=== PATIENT | male | born 1990 | race Two or more races ===

== ENCOUNTER 2024-09-17 05:52 | Emergency (ER) | payer OTHER, SELFPAY ==
[2024-09-17 06:19] VITALS: BP 126/92; PULSE 78; RESP 18; TEMP 36.9; O2SAT 97
--- NOTE | 2024-09-17 06:26 | PD.EDEXREM ---
ED Extremity Problem RME/HPI General Chief complaint: Extremity Problem,Nontraumatic Stated complaint: Gout flare up Time Seen by Provider: 09/17/24 06:06 Arrival date/time: 09/17/24 05:52 34-year-old male with history of gout presents emergency department complaints of gout flare right foot Limitations: no limitations Related Data Previous Rx's ?Medication ?Instructions ?Recorded ibuprofen 800 mg tablet 800 mg PO TID PRN pain #30 tabs 12/07/21 cyclobenzaprine 5 mg tablet 5 mg PO TID PRN muscle spasm #30 04/26/23 tabs gabapentin 100 mg capsule 100 mg PO TID #30 caps 04/26/23 naproxen 500 mg tablet 500 mg PO BID PRN pain #30 tabs 04/26/23 cyclobenzaprine 10 mg tablet 10 mg PO BID PRN muscle spasm #14 12/17/23 tabs gabapentin 300 mg capsule 300 mg PO Q8H #30 caps 12/17/23 ibuprofen 800 mg tablet (IBU) 800 mg PO Q8H #20 tabs 12/17/23 acetaminophen 500 mg capsule 1,000 mg (2 x 500 mg) PO TID #30 02/06/24 caps ibuprofen 600 mg tablet 600 mg PO TID PRN pain #30 tabs 02/06/24 lidocaine 5 % topical patch 1 patch topical QDAY #15 ea 02/06/24 (Lidoderm) hydrocodone 5 mg-acetaminophen 325 1 tab PO BID PRN pain #6 tabs 09/17/24 mg tablet indomethacin 50 mg capsule 50 mg PO TID 5 days #15 caps 09/17/24 prednisone 10 mg tablet 30 mg (3 x 10 mg) PO BID 3 days 09/17/24 #18 tabs Allergies Allergy/AdvReac Type Severity Reaction Status Date / Time Penicillins Allergy Severe HIVES, Verified 07/23/24 11:07 ITCHING Review of Systems Review of Systems Systems Reviewed: All systems reviewed, normal except as documented Constitutional Constitutional: Reports system reviewed and no additional complaints, except as documented, Denies fever(s) and Denies headache(s) Eyes Eyes: Reports system reviewed and no additional complaints, except as documented and Denies blurry vision ENT Ears, Nose, Mouth, and Throat: Reports system reviewed and no additional complaints, except as documented, Denies headache(s), Denies nasal congestion and Denies nasal discharge Cardiovascular Cardiovascular: Reports system reviewed and no additional complaints, except as documented, Denies chest pain and Denies dyspnea Respiratory Respiratory: Reports system reviewed and no additional complaints, except as documented, Denies chest congestion, Denies cough and Denies dyspnea Gastrointestinal Gastrointestinal: Reports system reviewed and no additional complaints, except as documented and Denies abdominal pain Musculoskeletal Musculoskeletal: Reports system reviewed and no additional complaints, except as documented, Reports abnormal gait, Reports arthralgias, Denies deformity, Reports joint swelling, Denies numbness, Reports stiffness and Denies tingling Integumentary/Breasts Skin/Breast: Reports system reviewed and no additional complaints, except as documented and Denies rash Neurologic Neurologic: Reports system reviewed and no additional complaints, except as documented, Reports as per HPI, Reports abnormal gait, Denies headache(s), Denies numbness and Denies tingling Past Medical History Past Medical History NEUROLOGIC: Negative Neurological Disorders CARDIAC: Negative Cardiac Disorders ED Exam General Limitations: Present no limitations General appearance: Present alert and in no apparent distress Head Head exam: Present atraumatic Eye Eye exam: Present normal appearance, PERRL and EOMI; Absent conjunctival injection ENT ENT exam: Present normal exam, normal oropharynx and mucous membranes moist Neck Neck exam: Present normal inspection, full ROM and trachea midline Chest Chest inspection: Present normal inspection and symmetric chest wall rise Respiratory Respiratory exam: Present normal lung sounds bilaterally Cardiovascular Cardiovascular exam: Present regular rate, normal rhythm and normal heart sounds Abdominal Exam Abdominal exam: Present soft and normal bowel sounds Extremities Exam Extremities exam: Present full ROM, tenderness (Right foot pain and tenderness) and normal capillary refill; Absent pedal edema, joint swelling or calf tenderness Back Exam Back exam: Present normal inspection and full ROM Neurological Exam Neurological exam: Present alert, oriented X3 and CN II-XII intact Psychiatric Psychiatric exam: Present normal affect and normal mood Skin Skin exam: Present warm, dry, intact and normal color Course Quality Measures none Orders Category Date Time Status Dexamethasone Inj [Decadron Inj] Med 09/17/24 06:26 Discontinued 10 mg PO X1 ONE HYDROcodone*/APAP 5/325 [[place] 5/325] Med 09/17/24 06:26 Discontinued 1 tab PO X1 ONE Ketorolac Inj [Toradol Inj] Med 09/17/24 06:26 Discontinued 30 mg IM X1 ONE Vital Signs Vital signs: Vital Signs Temperature 98.5 F 09/17/24 06:19 Pulse Rate 78 09/17/24 06:19 Respiratory Rate 18 09/17/24 06:19 Blood Pressure 126/92 H 09/17/24 06:19 Pulse Oximetry (%) 97 09/17/24 06:19 Oxygen Delivery Method Room Air 09/17/24 06:19 O2 saturation 97% room air within normal limit Extremity Problem MDM Narrative MDM Narrative:: 34-year-old male with history of gout presents emergency department complaints of gout flare right foot On exam patient appears to be in quite a bit of pain patient has pain to the palpation of the right foot patient is no swelling of the leg Symptoms highly consistent with gout flare patient will be medicated here and discharged with medication Patient discharged home in no distress to follow-up with primary care doctor in the next 24 to 48 hours and for any worsening symptoms to return to the ER immediately Patient data External records reviewed:: [facility] previous records Clinical information provided by:: patient Social determinants that could affect healthcare access:: none Patient has the following chronic illnesses:: Gout How is presenting disease/condition affected by chronic disease/condition?: caused by Evaluation data The following diagnostics were reviewed and interpreted by me:: other (specify) (N/A) Lab and/or radiology exams considered but not ordered:: Consider not ordered Interpretation Summary: N/A Medications / Prescriptions Medications or Prescriptions considered but not ordered:: Given Medication administrations:: Medication Administration History Discontinued Medications Hydrocodone Bitart/Acetaminophen (Hydrocodone/Apap 5/325 Tablet) 1 tab PO X1 ONE Stop: 09/17/24 06:27 Dexamethasone Sodium Phosphate (Dexamethasone Sod Phos Inj 10 Mg/Ml Vial) 10 mg PO X1 ONE Stop: 09/17/24 06:27 Ketorolac Tromethamine (Ketorolac Inj 30 Mg/Ml Vial) 30 mg IM X1 ONE Stop: 09/17/24 06:27 Given Consultations Consultation(s) initiated? (list below): No Diagnosis Extremity Problem Differential Diagnosis: superficial thrombophlebitis, deep vein thrombosis of lower extremity and other (Gout) Most likely diagnosis given after review of the tests above:: Gout flare Admission Indicated Admission indicated?: not indicated Admission Request Was there a request for admission?: No Disposition Plan Disposition Plan: Discharge Discharge Attestation Discharge Attestation: The patient and all family members were given an opportunity to ask questions and understood the discharge instructions. Discharge instructions specifically effects, indications for sooner follow up or return to the emergency department, and the expected course of current diagnosis. Patient condition: Stable Discharge Plan Plan Patient Disposition: HOME (Self Care) Disposition Comment: stable Prescriptions/Referrals Prescriptions/Med Rec: New prednisone 10 mg tablet 30 mg PO BID 3 Days Qty: 18 0RF hydrocodone-acetaminophen 5-325 mg tablet 1 tab PO BID MDD 10 PRN (Reason: pain) Qty: 6 0RF indomethacin 50 mg capsule 50 mg PO TID 5 Days Qty: 15 0RF Rx Instructions: administer with food or milk No Action ibuprofen 800 mg tablet 800 mg PO TID PRN (Reason: pain) Qty: 30 0RF naproxen 500 mg tablet 500 mg PO BID PRN (Reason: pain) Qty: 30 0RF cyclobenzaprine 5 mg tablet 5 mg PO TID PRN (Reason: muscle spasm) Qty: 30 0RF gabapentin 100 mg capsule 100 mg PO TID Qty: 30 0RF lidocaine [Lidoderm] 5 % adhesive patch,medicated 1 patch topical QDAY Qty: 15 0RF Rx Instructions: leave on most painful area for up to 12 hrs ibuprofen 600 mg tablet 600 mg PO TID PRN (Reason: pain) Qty: 30 0RF acetaminophen 500 mg capsule 1,000 mg PO TID Qty: 30 0RF cyclobenzaprine 10 mg tablet 10 mg PO BID PRN (Reason: muscle spasm) Qty: 14 0RF ibuprofen [IBU] 800 mg tablet 800 mg PO Q8H Qty: 20 0RF gabapentin 300 mg capsule 300 mg PO Q8H Qty: 30 0RF Problem List Clinical Impression: Gout flare Patient/Caregiver Discharge Instructions Education Materials: ED Gout Additional Instructions: Please follow up with your primary care doctor in the next 24-48hrs for any worsening symptoms return here immediately Print Language: Namibian Stand Alone Forms: [employer] Award Info., Work/School Release, Patient Portal Info Letter PA/DIETARY SUPERVISOR Supervising Physician PA/ALEXIS Supervising Physician: dr becker
[2024-09-17] MEDS: DEXAMETHASONE SOD PHOS INJ 10 MG/ML VIAL PO (06:38)
[2024-09-17] MEDS: HYDROcodone/APAP 5/325 TABLET 1 TAB PO (06:38)
[2024-09-17] MEDS: KETOROLAC INJ 30 MG/ML VIAL IM (06:38)
== END 2024-09-17 07:19 | disposition home or self-care (01) ==
LOC: SERX 06:52
PROVIDERS: Emergency Provider Emergency Medicine; PCP Family Medicine
DX: M10.9 Gout, unspecified (principal)
CPT/HCPCS: 96372; 99283; J1100; J1885; A9270

== ENCOUNTER 2025-03-04 12:41 | Emergency (ER) | payer OTHER, SELFPAY ==
[2025-03-04 12:43] VITALS: BMI 34.9
--- NOTE | 2025-03-04 12:55 | XR_ITS ---
Examination: PA lateral chest 2 views TECHNIQUE: Upright PA lateral chest 2 views Exam date and time: February 24, 2025 1448 hours INDICATIONS: Coughing beginning 4 days ago. FINDINGS: Normal heart size Lungs are clear. The osseous structures are intact IMPRESSION: No active disease
--- NOTE | 2025-03-04 12:55 | XR_ITS ---
Examination: Duplex scan of the upper extremity, unilateral right Date and time of exam: March 04, 2025 1400 hours INDICATIONS: Right hand swelling arm pain 4 days Technique: Duplex scan of the extremity veins using B-mode/grayscale imaging and Doppler spectral analysis and color flow Attention is directed to internal echogenicity, compression and augmentation involving these veins, color flow assessment, spectral analysis Findings: Major deep venous structures in the extremity demonstrate normal course and caliber. There is no evidence of deep vein thrombosis. Normal color flow and spectral analysis Impression: Negative for DVT..
--- NOTE | 2025-03-04 12:55 | EKG_ITS ---
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
[2025-03-04 13:04] VITALS: BP 152/90; PULSE 80; RESP 18; TEMP 36.9; O2SAT 96
[2025-03-04 13:36] LABS: Basophils # (Auto) 0.1 Thou/mm3 (0.0-0.2); Basophils % (Auto) 1 % (0-2.5); Eosinophils # (Auto) 0.5 Thou/mm3 (0.0-0.5); Eosinophils % (Auto) 4 % (0-10); Hematocrit 48.9 % (41.0-53.0); Hemoglobin 16.8 g/dL (13.5-16.0); Immature Granulocytes % (Auto) 0 % (0-0); Immature Granulocytes Auto 0.03 Thou/mm3 (0.00-0.00); Lymphocytes # (Auto) 2.8 Thou/mm3 (1.0-4.8); Lymphocytes % (Auto) 22 % (10-50); Mean Corpuscular HGB Conc 34.4 g/dl (31.0-37.0); Mean Corpuscular Hemoglobin 28.5 pg (25.0-35.0); Mean Corpuscular Volume 83 fL (80-100); Monocytes # (Auto) 1.1 Thou/mm3 (0.0-0.8); Monocytes % (Auto) 8 % (0-12); Neutrophils # (Auto) 8.5 Thou/mm3 (1.8-7.7); Neutrophils % (Auto) 66 % (37-80); Nucleated Red Blood Cell % 0 /100 WBC (0); Platelet Count 239 Thou/mm3 (140-440); RDW Standard Deviation 38.1 fL (35.1-43.9); White Blood Count 12.9 Thou/mm3 (3.8-10.6)
[2025-03-04 13:52] LABS: Alanine Aminotransferase 40 U/L (10-49); Albumin, Serum 4.6 gm/dL (3.5-5.0); Albumin/Globulin Ratio 1.5 (1.2-2.2); Alkaline Phosphatase 47 U/L (46-116); Anion Gap 8 (7-16); Aspartate Amino Transferase 30 U/L (0-34); BUN/Creatinine Ratio 9 Ratio (12-20); Bilirubin,Total 0.5 mg/dL (0.3-1.2); Blood Urea Nitrogen 8 mg/dL (9-23); Calcium 9.5 mg/dL (8.3-10.6); Calcium (Corrected) 9.5 mg/dL (8.5-10.1); Carbon Dioxide 27.4 mMol/L (20.0-31.0); Chloride 105 mMol/L (98-107); Creatinine (Component) 0.9 mg/dL (0.6-1.3); Estimated Creatinine Clearance 154.1 mL/min (>60); Glucose 110 mg/dL (74-106); Osmolality,Calculated 278 (275-295); Potassium 3.8 mMol/L (3.4-5.1); Sodium 140 mMol/L (136-145); Total Protein 7.6 gm/dL (5.7-8.2); Troponin I < 0.002 ng/mL (0.0-0.045); eGFR > 60 See Note
--- NOTE | 2025-03-04 14:35 | EDNOTE_ITS ---
<Statement entered by Kanika Payne MD - 03/08/25 05:26> As co-signing physician, I was present and available for consult prn. I concur with the plan and care as documented by the midlevel provider. Upper Respiratory Inf. RME/HPI General Chief Complaint: Flu Like Symptoms Stated Complaint: CHEST CONGESTION X5 DAYS, R HAND SWELLING X4 DAYS Time Seen by Provider: 03/04/25 12:51 Arrival date/time: 03/04/25 12:41 35-year-old male presents emergency department today for complaint of chest congestion, cough x 5 days patient also reports right hand swelling intermittently patient ports history of gout. Limitations: no limitations Related Data Previous Rx's ?Medication ?Instructions ?Recorded ibuprofen 800 mg tablet 800 mg PO TID PRN pain #30 t abs 12/07/21 cyclobenzaprine 5 mg tablet 5 mg PO TID PRN muscle spa sm #30 04/26/23 tabs gabapentin 100 mg capsule 100 mg PO TID #30 caps 04/26 naproxen 500 mg tablet 500 mg PO BID PRN pain #30 t abs 04/26/23 cyclobenzaprine 10 mg tablet 10 mg PO BID PRN muscle s pasm #14 12/17/23 tabs gabapentin 300 mg capsule 300 mg PO Q8H #30 caps 12/17 ibuprofen 800 mg tablet (IBU) 800 mg PO Q8H #20 tabs 0 12/17/23 acetaminophen 500 mg capsule 1,000 mg (2 x 500 mg) PO TID #30 02/06/24 caps ibuprofen 600 mg tablet 600 mg PO TID PRN pain #30 t abs 02/06/24 lidocaine 5 % topical patch 1 patch topical QDAY #15 e a 02/06/24 (Lidoderm) hydrocodone 5 mg-acetaminophen 325 1 tab PO BID PRN pa in #6 tabs 09/17/24 mg tablet albuterol sulfate 90 mcg/actuation 2 puff inhalation Q 6H PRN 03/04/25 aerosol inhaler (Ventolin HFA) shortness of breath or wheezing #8.5 grams benzonatate 100 mg capsule 100 mg PO TID #14 caps 02/06 07/01 prednisone 10 mg tablet 30 mg (3 x 10 mg) PO BID 3 d ays 03/04/25 #18 tabs Allergies Allergy/AdvReac Type Severity Reaction Status Date / Time Penicillins Allergy Severe HIVES, Verified 07/23/24 11:07 ITCHING Review of Systems Review of Systems Systems Reviewed: All systems reviewed, normal except as documented Constitutional Constitutional: Reports system reviewed and no additional complaints, except as documented, Denies fever(s) and Denies headache(s) Eyes Eyes: Reports system reviewed and no additional complaints, except as documented and Denies blurry vision ENT Ears, Nose, Mouth, and Throat: Reports system reviewed and no additional complaints, except as documented, Denies headache(s), Reports nasal congestion and Reports nasal discharge Cardiovascular Cardiovascular: Reports system reviewed and no additional complaints, except as documented, Denies chest pain and Denies dyspnea Respiratory Respiratory: Reports system reviewed and no additional complaints, except as documented, Reports chest congestion, Reports cough and Denies dyspnea Gastrointestinal Gastrointestinal: Reports system reviewed and no additional complaints, except as documented and Denies abdominal pain Integumentary/Breasts Skin/Breast: Reports system reviewed and no additional complaints, except as documented and Denies rash Neurologic Neurologic: Reports system reviewed and no additional complaints, except as documented, Reports as per HPI and Denies headache(s) Past Medical History Past Medical History NEUROLOGIC: Negative Neurological Disorders or Seizures CARDIAC: Negative Cardiac Disorders or Congestive Heart Failure RESPIRATORY: Negative Chronic Obstructive Pulmonary Disease (COPD) or Asthma GASTROINTESTINAL: Positive Gastrointestinal Disorders, Colitis and Obesity GENITOURINARY: Negative Renal Disease MUSCULOSKELETAL: Positive Gout ENDOCRINE: Positive Endocrine Disorders and Diabetes Mellitus Type 2 (PRE DIABETIC. NOT ON MEDS); Negative Diabetes Mellitus Type 1 HEMATOLOGIC: Negative Sickle Cell Disease OTHER HISTORY: Negative Blood Transfusions, Blood Transfusion Reaction or Anesthesia Reactions Social History SMOKING STATUS: Never smoker SECOND HAND EXPOSURE: No SUBSTANCE USE: marijuana ED Exam General Limitations: Present no limitations General appearance: Present alert and in no apparent distress Head Head exam: Present atraumatic, normocephalic and normal inspection Eye Eye exam: Present normal appearance, PERRL and EOMI; Absent conjunctival injection ENT ENT exam: Present normal exam, normal oropharynx and mucous membranes moist Neck Neck exam: Present normal inspection, full ROM and trachea midline Chest Chest inspection: Present normal inspection and symmetric chest wall rise Respiratory Respiratory exam: Present normal lung sounds bilaterally; Absent respiratory distress or wheezes Cardiovascular Cardiovascular exam: Present regular rate, normal rhythm and normal heart sounds Abdominal Exam Abdominal exam: Present soft and normal bowel sounds; Absent distention, tenderness, guarding, rebound, rigidity, Renteria's sign or tenderness at McBurney's Point Abdominal tenderness: Absent RUQ, RLQ or LUQ Extremities Exam Extremities exam: Present normal inspection and full ROM Back Exam Back exam: Present normal inspection and full ROM Neurological Exam Neurological exam: Present alert, oriented X3 and CN II-XII intact Psychiatric Psychiatric exam: Present normal affect and normal mood Skin Skin exam: Present warm, dry, intact and normal color Course Quality Measures none Orders Category Date Time Status Bedside Influenza A&B Antigen Test NOW Care 03/04/25 13:50 Active EKG (ED ONLY) *Do not use* NOW Care 03/04/25 12:55 Completed EKG (ED Only) Stat Exams 03/04/25 12:55 Draft US venous doppler UE RT Stat Exams 03/04/25 12:55 Taken XR chest 2V Stat Exams 03/04/25 12:55 Completed CBC Stat Lab 03/04/25 13:15 Completed Comprehensive Metabolic Panel Stat Lab 03/04/25 13:15 Completed Troponin I Stat Lab 03/04/25 13:15 Completed Vital Signs Vital signs: Vital Signs Temperature 98.4 F 03/04/25 13:04 Pulse Rate 80 03/04/25 13:04 Respiratory Rate 18 03/04/25 13:04 Blood Pressure 152/90 H 03/04/25 13:04 Pulse Oximetry (%) 96 03/04/25 13:04 Oxygen Delivery Method CPAP 03/04/25 13:04 O2 saturation 96% room air within the limits Procedures -ED EKG Interpretation #1: Date of EK03/04/25 Time of EK:08 Rate: 72 Interpretation: Interpreted by me EKG Impression: Normal sinus rhythm, No acute ST-T changes, No ectopy, No ischemic changes, Normal QRS, Normal intervals and Normal axis Upper Respiratory Infection MDM Narrative MDM Narrative:: 35-year-old male presents emergency department today for complaint of chest congestion, cough x 5 days patient also reports right hand swelling intermittently patient ports history of gout. On exam patient well-appearing patient does not appear ill or toxic patient is hemodynamically stable O2 saturation 96% room air Lab work and imaging obtained no acute emergent findings noted EKG obtained no acute emergent findings noted Symptoms are consistent with URI Patient discharged home in no distress to follow-up with primary care doctor in the next 24 to 48 hours and for any worsening symptoms to return to the ER immediately Patient data External records reviewed:: [facility] previous records Clinical information provided by:: patient Social determinants that could affect healthcare access:: none Patient has the following chronic illnesses:: Gout How is presenting disease/condition affected by chronic disease/condition?: exacerbated by Evaluation data The following diagnostics were reviewed and interpreted by me:: lab results, radiology exam(s) and EKG tracing(s) Lab and/or radiology exams considered but not ordered:: Labs, radiology, EKG obtained Interpretation Summary: Reviewed by me Medications / Prescriptions Medications or Prescriptions considered but not ordered:: Given Medication administrations:: Given Consultations Consultation(s) initiated? (list below): No Diagnosis Upper Respiratory Differential Diagnosis: upper respiratory infection, sinusitis, viral infection, bronchitis and influenza Most likely diagnosis given after review of the tests above:: URI Admission Indicated Admission indicated?: not indicated Admission Request Was there a request for admission?: No Disposition Plan Disposition Plan: Discharge Discharge Attestation Discharge Attestation: The patient and all family members were given an opportunity to ask questions and understood the discharge instructions. Discharge instructions specifically effects, indications for sooner follow up or return to the emergency department, and the expected course of current diagnosis. Patient condition: Stable Discharge Plan Plan Patient Disposition: HOME (Self Care) Disposition Comment: Stable Prescriptions/Referrals Prescriptions/Med Rec: New prednisone 10 mg tablet 30 mg PO BID 3 Days Qty: 18 0RF benzonatate 100 mg capsule 100 mg PO TID Qty: 14 0RF albuterol sulfate [Ventolin HFA] 90 mcg/actuation HFA aerosol inhaler 2 puff inhalation Q6H PRN (Reason: shortness of breath or wheezing) Qty: 8.5 0RF No Action ibuprofen 800 mg tablet 800 mg PO TID PRN (Reason: pain) Qty: 30 0RF naproxen 500 mg tablet 500 mg PO BID PRN (Reason: pain) Qty: 30 0RF cyclobenzaprine 5 mg tablet 5 mg PO TID PRN (Reason: muscle spasm) Qty: 30 0RF gabapentin 100 mg capsule 100 mg PO TID Qty: 30 0RF lidocaine [Lidoderm] 5 % adhesive patch,medicated 1 patch topical QDAY Qty: 15 0RF Rx Instructions: leave on most painful area for up to 12 hrs ibuprofen 600 mg tablet 600 mg PO TID PRN (Reason: pain) Qty: 30 0RF acetaminophen 500 mg capsule 1,000 mg PO TID Qty: 30 0RF cyclobenzaprine 10 mg tablet 10 mg PO BID PRN (Reason: muscle spasm) Qty: 14 0RF ibuprofen [IBU] 800 mg tablet 800 mg PO Q8H Qty: 20 0RF gabapentin 300 mg capsule 300 mg PO Q8H Qty: 30 0RF hydrocodone-acetaminophen 5-325 mg tablet 1 tab PO BID MDD 10 PRN (Reason: pain) Qty: 6 0RF Referrals: Nicola Dove PA-C [Primary Care Provider] - In 1 week Problem List Clinical Impression: Cough, Chest wall pain, Arm pain, right Patient/Caregiver Discharge Instructions Education Materials: ED Chest Pain, Noncardiac Additional Instructions: Please follow up with your primary care doctor in the next 24-48hrs for any worsening symptoms return here immediately Print Language: [place] Stand Alone Forms: [employer] Award Info., Work/School Release, Patient Portal Info Letter BHAVANI/ALEXIS Supervising Physician BHAVANI/ALEXIS Supervising Physician: dr payne
[2025-03-04 14:51] VITALS: PULSE 77; O2SAT 99
== END 2025-03-04 14:52 | disposition home or self-care (01) ==
PROVIDERS: Nurse Practitioner Primary Care; Emergency Provider Emergency Medicine; PCP Physician Assistant Medical
DX: R07.89 Other chest pain (principal); R05.9 Cough, unspecified; R09.89 Other specified symptoms and signs involving the circulatory and respiratory systems; M79.601 Pain in right arm; M79.89 Other specified soft tissue disorders
CPT/HCPCS: 36415; 71046; 80053; 84484; 85025; 87502; 93005; 93971; 99283